=== PATIENT | male | born 1995 | race Caucasian/White ===

== ENCOUNTER 2021-02-26 23:24 | Emergency (ER) | payer OTHER, SELFPAY ==
[2021-02-26 23:30] VITALS: BP 128/79; PULSE 98; RESP 17; TEMP 36.9; O2SAT 98; BMI 31.1
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
[2021-02-26] MEDS: AMOXICILLIN/CLAV 875/125 MG 1 TAB PO (23:38)
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
[2021-02-27 00:08] LABS: Alanine Aminotransferase 45 IU/L (<50)
[2021-02-27 01:02] LABS: HIV 1 & 2 Ab/Ag 4th Gen Combo NEGATIVE (NEGATIVE); Hep C Virus Ab w/Reflex Quant NEGATIVE s/c (NEGATIVE)
[2021-02-28 05:01] LABS: Hepatitis B Surf Ab Qualitativ Non Reactive (.)
== END 2021-02-26 23:53 | disposition home or self-care (01) ==
PROVIDERS: Emergency Provider Emergency Medicine
DX: S61.452A Open bite of left hand, initial encounter (principal); Y04.1XXA Assault by human bite, initial encounter
CPT/HCPCS: 36415; 84460; 86706; 86803; 87389; 99283